=== PATIENT | female | born 2000 | race African-American/Black ===

== ENCOUNTER 2022-12-30 15:50 | Emergency (ER) | payer OTHER ==
[~2022-12-30] VITALS: Ht 154.9 cm; Wt 88.1 kg
[2022-12-30] MEDS ORDERED: NS 1,000 ML IV ONE (20:35)
[2022-12-30] MEDS ORDERED: INSULIN IV RATE CHANGE DOCUMENTATION ML/HR XX SCH (20:50)
[2022-12-30] MEDS ORDERED: HumuLIN R (REGULAR) INSULIN (NovoLIN R) **100U/ML** PER UNIT IV ONE (20:50)
[2022-12-30] MEDS ORDERED: NS 2,640 ML in IV 1 EA IV ONE (20:50)
[2022-12-30] MEDS ORDERED: INSULIN REGULAR IN 0.9 % NACL 100 UNIT in IV 1 EA IV SCH ×2 (20:50)
[2022-12-30 21:14] LABS: ABG HCO3 2.2 MMOL/L (22.0-26.0); ABG O2 SATURATION 98.7 % (95.0-99.0); ABG PARTIAL PRESSURE O2 189.2 mmHg (75.0-100.0); ABG STANDARD HCO3 6.1 MMOL/L. (22.0-26.0); ABG TOTAL CO2 2.5 MMOL/L (22.0-29.0)
[2022-12-30 21:15] LABS: ABG PARTIAL PRESSURE CO2 10.9 mmHg (35.0-45.0); ABG pH (ARTERIAL) 6.917 UNITS (7.350-7.450)
[2022-12-30 21:19] LABS: HEMOGLOBIN A1c > 14.0 % (4.0-6.0)
[2022-12-30] MEDS ORDERED: SODIUM BICARBONATE 8.4% INJ 50ML SYRINGE IV ONE (21:25)
[2022-12-30 21:28] LABS: BASO # 0.2 10^3/uL (0.0-0.2); BASO % 0.6 % (0.0-1.0); EOS % 0.1 % (0.0-3.0); HEMATOCRIT 48.7 % (36.0-47.0); HEMOGLOBIN 14.2 g/dl (12.0-15.5); LYMPH # 1.4 10^3/uL (1.5-5.0); LYMPH % 4.2 % (24.0-44.0); MEAN CORPUSCULAR HEMOGLOBIN 26.8 pg (27.0-33.0); MEAN CORPUSCULAR HGB CONC 29.2 g/dl (32.0-36.5); MEAN CORPUSCULAR VOLUME 91.9 fl (80.0-96.0); MONO # 0.9 10^3/uL (0.0-0.8); MONO % 2.6 % (2.0-8.0); NEUTROPHILS # 30.2 10^3/uL (1.5-8.5); NEUTROPHILS % 89.8 % (36.0-66.0); PLATELET COUNT, AUTOMATED 572 10^3/uL (150-450)
[2022-12-30 21:30] LABS: LIPASE 28 U/L (12-53)
[2022-12-30 21:31] LABS: CK-MB VALUE MASS 27.6 NG/ML (<3.6)
[2022-12-30 21:33] LABS: CPK CREATINE PHOSPHOKINASE 671 U/L (34-145); MB/CK RELATIVE INDEX 4.11 (< OR =4)
[2022-12-30 21:34] LABS: WHITE BLOOD COUNT 33.7 10^3/uL (4.0-10.0)
[2022-12-30] MEDS ORDERED: PIPERACILLIN/TAZOBACTAM SOD 4.5 GM in D5W MINI-BAG PLUS 50 ML IV ONE (21:40)
[2022-12-30 21:42] LABS: OSMOLALITY SERUM 371 MOSM/KG (275-295)
[2022-12-30 21:56] LABS: CK-MB VALUE MASS 23.6 NG/ML (<3.6)
[2022-12-30 21:58] LABS: ALBUMIN 4.1 G/DL (3.2-5.2); ALKALINE PHOSPHATASE 164 U/L (46-116); ALT/SGPT 23 U/L (7.0-40); AST/SGOT 97 U/L (<34); BILIRUBIN,DIRECT < 0.1 MG/DL (<0.4); BILIRUBIN,TOTAL 0.3 MG/DL (0.3-1.2); BLOOD UREA NITROGEN 51 MG/DL (9-23); CALCIUM LEVEL 9.3 MG/DL (8.5-10.1); CARBON DIOXIDE LEVEL < 10.0 MMOL/L (20-31); CHLORIDE LEVEL 89 MMOL/L (98-107); CREATININE FOR GFR 1.43 MG/DL (0.55-1.30); PHOSPHORUS LEVEL 11.6 MG/DL (2.5-4.9); POTASSIUM SERUM 5.8 MMOL/L (3.5-5.1); SODIUM LEVEL 124 MMOL/L (136-145); TOTAL PROTEIN 8.9 G/DL (5.7-8.2)
[2022-12-30 22:07] LABS: ACETONE/KETONE > 4.50 MMOL/L (0.02-0.27)
[2022-12-30 22:11] LABS: GLUCOSE, FASTING 916 MG/DL (60-100)
[2022-12-30] MEDS ORDERED: HEPARIN SOD (PORCINE) 5000UNITS/ML 1ML VIAL/SYRINGE IV ONE (22:40)
[2022-12-30] MEDS ORDERED: ASPIRIN 81MG CHEW TABLET PO ONE (22:40)
[2022-12-30] MEDS ORDERED: HEPARIN DRIP 25,000 UNITS in IV 1 EA IV SCH (22:40)
[2022-12-30] MEDS ORDERED: HEPARIN SOD (PORCINE) 5000UNITS/ML 1ML VIAL/SYRINGE IV PRN (22:40)
[2022-12-30] MEDS ORDERED: SODIUM BICARBONATE 150 MEQ in STERILE WATER LITER BAG 1,000 ML IV SCH (22:40)
[2022-12-30] MEDS ORDERED: KCL 40MEQ in NS 1000ML 1,000 ML IV SCH (22:40)
[2022-12-30 22:57] LABS: VENOUS HCO3 3.8 MMOL/L (23.0-27.0); VENOUS O2 SATURATION 87.1 % (60.0-80.0); VENOUS PARTIAL PRESSURE CO2 19.9 mmHg (38.0-50.0); VENOUS PARTIAL PRESSURE O2 72.5 mmHg (30.0-50.0); VENOUS PH 6.902 UNITS (7.330-7.430); VENOUS STANDARD HCO3 6.1 MMOL/L; VENOUS TOTAL CO2 4.4 MMOL/L (24.0-28.0)
[2022-12-30 22:59] LABS: HEMATOCRIT 46.7 % (36.0-47.0); HEMOGLOBIN 13.9 g/dl (12.0-15.5); MEAN CORPUSCULAR HEMOGLOBIN 26.2 pg (27.0-33.0); MEAN CORPUSCULAR HGB CONC 29.8 g/dl (32.0-36.5); MEAN CORPUSCULAR VOLUME 88.1 fl (80.0-96.0); PLATELET COUNT, AUTOMATED 478 10^3/uL (150-450)
[2022-12-30 23:03] LABS: WHITE BLOOD COUNT 35.7 10^3/uL (4.0-10.0)
[2022-12-30 23:20] LABS: INR 1.17; PROTHROMBIN TIME 15.1 SECONDS (12.5-14.5)
[2022-12-30 23:21] LABS: PARTIAL THROMBOPLASTIN TIME 24.9 SECONDS (24.8-34.2)
[2022-12-30 23:33] LABS: BLOOD UREA NITROGEN 49 MG/DL (9-23); CALCIUM LEVEL 8.2 MG/DL (8.5-10.1); CARBON DIOXIDE LEVEL < 10.0 MMOL/L (20-31); CHLORIDE LEVEL 102 MMOL/L (98-107); GLOMERULAR FILTRATION RATE > 60.0 (>60); GLUCOSE, FASTING 634 MG/DL (60-100); POTASSIUM SERUM 4.4 MMOL/L (3.5-5.1); SODIUM LEVEL 136 MMOL/L (136-145)
[2022-12-30] MEDS: METOPROLOL 5 MG/5 ML VIAL IV SCH ×2 (23:34→23:42)
[2022-12-30 23:42] VITALS: BP 107/52
[2022-12-31 00:40] VITALS: BP 134/72; TEMP 97.6; O2SAT 100
== END 2022-12-31 00:43 | disposition short-term general hospital (02) ==
LOC: M ED 15:50
DX: E11.10 Type 2 diabetes mellitus with ketoacidosis without coma (principal); I21.3 ST elevation (STEMI) myocardial infarction of unspecified site
CPT/HCPCS: 36556; 36600; 51702; 71045; 80047; 80048; 80076; 81001; 82010; 82550; 82553; 82803; 83036; 83605; 83690; 83735; 83930; 84100; 84484; 84702; 85025; 85027; 85610; 85730; 87486; 87581; 87633; 87798; 93005; 93041; 94760; 96361; 96374; 96375; 96376; 99285; J1815; J2543

== ENCOUNTER → 2024-02-05 | Outpatient (CLI) | payer OTHER, MEDICAID ==
[2024-02-05 13:05] LABS: BASO # 0.1 10^3/uL (0.0-0.2); BASO % 0.8 % (0.0-1.0); EOS # 0.2 10^3/uL (0.0-0.5); HEMATOCRIT 39.6 % (36.0-47.0); HEMATOCRIT 39.8 % (36.0-47.0); HEMOGLOBIN 12.7 g/dl (12.0-15.5); LYMPH # 2.1 10^3/uL (1.5-5.0); LYMPH % 27.1 % (24.0-44.0); MEAN CORPUSCULAR HEMOGLOBIN 26.7 pg (27.0-33.0); MEAN CORPUSCULAR HGB CONC 31.9 g/dl (32.0-36.5); MEAN CORPUSCULAR VOLUME 83.6 fl (80.0-96.0); MONO # 0.6 10^3/uL (0.0-0.8); MONO % 7.7 % (2.0-8.0); NEUTROPHILS # 4.8 10^3/uL (1.5-8.5); PLATELET COUNT, AUTOMATED 332 10^3/uL (150-450); RED BLOOD COUNT 4.76 10^6/uL (4.00-5.40); WHITE BLOOD COUNT 7.7 10^3/uL (4.0-10.0)
[2024-02-05 13:09] LABS: ALKALINE PHOSPHATASE 91 U/L (46-116); ALT/SGPT 25 U/L (7.0-40); AST/SGOT 23 U/L (<34); BILIRUBIN,TOTAL 0.9 MG/DL (0.3-1.2); BLOOD UREA NITROGEN 17 MG/DL (9-23); CALCIUM LEVEL 9.3 MG/DL (8.5-10.1); CARBON DIOXIDE LEVEL 25 MMOL/L (20-31); CHLORIDE LEVEL 104 MMOL/L (98-107); CHOLESTEROL LEVEL 127 MG/DL (<200); CHOLESTEROL RISK RATIO 4.08 (<5); CREATININE FOR GFR 0.59 MG/DL (0.55-1.30); GLOMERULAR FILTRATION RATE > 60.0 (>60); GLUCOSE, FASTING 275 MG/DL (60-100); HDL CHOLESTEROL 31.1 MG/DL (>40); IRON (FE) 94 UG/DL (50-170); LDL CHOLESTEROL 67.1 MG/DL (<100); NON-HDL-C 95.9 MG/DL; PERCENT SATURATION 33.8 % (13.2-45.0); POTASSIUM SERUM 5.1 MMOL/L (3.5-5.1); SODIUM LEVEL 135 MMOL/L (136-145); TOTAL IRON BINDING CAPACITY 278 UG/DL (250-425); TOTAL PROTEIN 7.2 G/DL (5.7-8.2); TRIGLYCERIDES LEVEL 144 MG/DL (<150)
[2024-02-05 13:11] LABS: FREE T4 1.01 NG/DL (0.89-1.76); THYROID STIMULATING HORMONE 6.573 uIU/ML (0.55-4.78); VITAMIN B12 LEVEL 415 PG/ML (211-911)
[2024-02-05 13:29] LABS: CREATININE, URINE 76.1 MG/DL; MAU/CREAT RATIO 24.9 MCG/MG (0.0-30.0)
[2024-02-05 13:45] LABS: HEMOGLOBIN A1c 11.3 % (4.0-6.0)
== END ==
LOC: M WUC 10:04
PROVIDERS: ATTEND Student in an Organized Health Care Education/Training Program
DX: E11.59 Type 2 diabetes mellitus with other circulatory complications (principal); I16.0 Hypertensive urgency; Z86.2 Personal history of diseases of the blood and blood-forming organs and certain disorders involving the immune mechanism; R00.0 Tachycardia, unspecified